=== PATIENT | female | born 1965 | race Caucasian/White ===

== ENCOUNTER 2017-10-27 13:35 | Observation (INO) | payer OTHER, BC ==
[~2017-10-27] VITALS: Ht 170.2 cm; Wt 59.7 kg
[2017-10-27 14:28] LABS: HEMATOCRIT 40.3 % (36.0-46.0); MCH 32.1 PG (29.0-34.0); MCHC 34.7 G/DL (30.0-36.0); MCV 92.4 FL (83-99); PLATELET COUNT 233 K/uL (156-360); RBC DIS.WIDTH-CV 11.9 % (11.8-14.6); RBC DIS.WIDTH-SD 40.3 % (39-53); RED BLOOD COUNT 4.36 M/uL (3.80-5.20); WHITE BLOOD COUNT 19.2 K/uL (4.1-10.2)
[2017-10-27 14:37] LABS: CHLORIDE 101 mEq/L (99-109); POTASSIUM 5.4 mEq/L (3.7-5.4); SODIUM 133 mEq/L (136-147)
[2017-10-27 14:38] LABS: GLUCOSE 152 mg/dL (70-99)
[2017-10-27 14:42] LABS: CREATININE 1.4 mg/dL (0.6-1.3)
[2017-10-27 14:43] LABS: UREA NITROGEN (BUN) 17 mg/dL (9-23)
[2017-10-27 14:44] LABS: GFR ESTIMATE (CALCULATED) 42 mL/min/
[2017-10-27 15:18] LABS: ALBUMIN 4.3 g/dL (3.2-4.8)
[2017-10-27 15:19] LABS: MAGNESIUM 1.6 mg/dL (1.3-2.7)
[2017-10-27 15:21] LABS: TOTAL PROTEIN 7.7 g/dL (6.4-8.3)
[2017-10-27 15:23] LABS: TOTAL BILIRUBIN 0.5 mg/dL (0.0-1.0)
[2017-10-27 15:24] LABS: ALKALINE PHOSPHATASE 110 IU/L (3-129)
[2017-10-27 15:26] LABS: AST (GOT) 16 IU/L (2-34); DIRECT BILIRUBIN 0.2 mg/dL (0.0-0.3)
[2017-10-27 15:27] LABS: ALT (GPT) 11 IU/L (3-49); LIPASE 18 U/L (1.0-51.0)
[2017-10-27 15:30] LABS: TROP-I INTERPRETATION NEGATIVE; TROPONIN-I < 0.01 ng/mL (0.0-0.30)
[2017-10-27 18:28] LABS: APPEARANCE CLEAR ((CLEAR)); BILIRUBIN NEGATIVE; BLOOD NEGATIVE; COLOR STRAW ((YELLOW)); GLUCOSE (STRIP) NEGATIVE; KETONES NEGATIVE; LEUKOCYTES NEGATIVE; NITRITE NEGATIVE; PROTEIN (STRIP) NEGATIVE; SPECIFIC GRAVITY 1.008 (1.000-1.030); UCUL ADDED? NO; UROBILINOGEN 0.2 MG/DL (0.2-1.0)
[2017-10-27] MEDS ORDERED: PROGRAF0.5 MG PO (19:29)
[2017-10-27] MEDS ORDERED: SODIUM CHLORIDE1 G1 PO (19:29)
[2017-10-27] MEDS ORDERED: GABAPENTIN600 MG PO (19:30)
[2017-10-27] MEDS ORDERED: LO-DOSE ASPIRIN81 M1 PO (19:31)
[2017-10-27] MEDS ORDERED: VITAMIN A8000 UNIT PO (19:32)
[2017-10-27] MEDS ORDERED: ZOFRAN4 MG PO (19:32)
[2017-10-27] MEDS ORDERED: TRAMADOL HCL50 MG PO (19:32)
[2017-10-27] MEDS ORDERED: VITAMIN B-122000 MC1 PO (19:35)
[2017-10-27] MEDS ORDERED: ASCORBIC ACID100 MG PO (19:36)
[2017-10-27] MEDS ORDERED: VITAMIN D2000 UNI1 PO (19:37)
[2017-10-27] MEDS ORDERED: LAXATIVE5 M1 PO (19:38)
[2017-10-27] MEDS ORDERED: ROXICODONE5 MG PO (19:39)
[2017-10-27] MEDS ORDERED: DIMENHYDRINATE50 MG PO (19:40)
[2017-10-27] MEDS ORDERED: AFRIN,GENASAL D15 ML BOTH NARES (19:42)
[2017-10-27] MEDS ORDERED: ZOLPIDEM TARTRAT5 MG PO (19:42)
[2017-10-27] MEDS ORDERED: MOTRIN600 MG PO (19:44)
[2017-10-27] MEDS ORDERED: ASPERCREME76.5 GM TP (19:46)
[2017-10-27 21:39] LABS: CHLORIDE 107 mEq/L (99-109); POTASSIUM 5.2 mEq/L (3.7-5.4); SODIUM 135 mEq/L (136-147)
[2017-10-27 21:40] LABS: GLUCOSE 170 mg/dL (70-99)
[2017-10-27 21:44] LABS: CREATININE 1.2 mg/dL (0.6-1.3); GFR ESTIMATE (CALCULATED) 50 mL/min/
[2017-10-27 21:45] LABS: UREA NITROGEN (BUN) 17 mg/dL (9-23)
[2017-10-27 22:52] VITALS: BP 131/78
[2017-10-28 04:09] VITALS: BP 113/56
[2017-10-28 06:35] LABS: HEMATOCRIT 34.4 % (36.0-46.0); MCHC 32.8 G/DL (30.0-36.0); MCV 94.5 FL (83-99); PLATELET COUNT 180 K/uL (156-360); RBC DIS.WIDTH-CV 12.2 % (11.8-14.6); RBC DIS.WIDTH-SD 42.5 % (39-53); RED BLOOD COUNT 3.64 M/uL (3.80-5.20)
[2017-10-28 06:41] LABS: HEMOGLOBIN 11.3 G/DL (11.9-15.5)
[2017-10-28 06:59] LABS: CHLORIDE 105 MEQ/L (99-109); GFR ESTIMATE (CALCULATED) > 59 mL/min/; GLUCOSE 122 mg/dL (70-99); POTASSIUM 4.5 MEQ/L (3.7-5.4); SODIUM 137 MEQ/L (136-147); UREA NITROGEN (BUN) 15 mg/dL (9-23)
[2017-10-28 08:16] VITALS: BP 121/56
[2017-10-28 11:26] VITALS: BP 137/67
== END 2017-10-28 12:52 | disposition home or self-care (01) ==
LOC: EME 13:35 → EDOF 20:24 → CANRESERV 20:27 → ENRESERV 20:27 → 3EAST 21:59
PROVIDERS: Emergency Medicine; Nurse Practitioner Adult Health
DX: E87.1 Hypo-osmolality and hyponatremia (principal); R55 Syncope and collapse; D72.829 Elevated white blood cell count, unspecified; Z94.4 Liver transplant status; M62.50 Muscle wasting and atrophy, not elsewhere classified, unspecified site; Z87.891 Personal history of nicotine dependence; Z88.0 Allergy status to penicillin; Z88.8 Allergy status to other drugs, medicaments and biological substances; Z79.82 Long term (current) use of aspirin; Z79.899 Other long term (current) drug therapy
CPT/HCPCS: 71046; 80048; 80048 91; 80076; 81003; 83605; 83690; 83735; 84484; 85027; 93005; 99281; 99285; G0378; J7030; J7507